=== PATIENT | male | born 1990 | race Caucasian/White ===

== ENCOUNTER 2019-04-29 00:33 | Emergency (ER) | payer OTHER ==
[2019-04-29] MEDS: SOD CHLORIDE 0.9% 1,000 ML IV (00:56)
[2019-04-29 01:01] LABS: ADD MAN DIFF? NO
[2019-04-29 01:04] LABS: WHITE BLOOD COUNT 10.3 10^3/ul (4.8-10.8)
[2019-04-29 01:04] LABS: BASOPHILS % 0.4 % (0.0-2.0); EOSINOPHILS # 0.1 10^3/ul (0.0-0.5); EOSINOPHILS % 1.3 % (0.0-7.0); HEMATOCRIT 45.7 % (42.0-52.0); HEMOGLOBIN 15.9 g/dl (14.0-18.0); LYMPHOCYTES # 2.4 10^3/ul (0.8-2.9); LYMPHOCYTES % 22.8 % (15.0-51.0); MEAN CORPUSCULAR HEMOGLOBIN 32.4 pg (29.0-33.0); MEAN CORPUSCULAR HGB CONC 34.8 g/dl (32.0-37.0); MEAN CORPUSCULAR VOLUME 93.1 fl (82.0-101.0); MEAN PLATELET VOLUME 9.3 fl (7.4-10.4); MONOCYTE # 0.7 10^3/ul (0.3-0.9); MONOCYTES % 6.7 % (0.0-11.0); NEUTROPHIL # 7.1 10^3/ul (1.6-7.5); NEUTROPHILS % 68.5 % (39.0-77.0); PLATELET COUNT 269 10^3/UL (140-415); RED BLOOD COUNT 4.91 10^6/ul (4.70-6.10); RED CELL DISTRIBUTION WIDTH 12.5 % (11.5-14.5)
[2019-04-29 01:24] LABS: INR 0.85; PARTIAL THROMBOPLASTIN TIME 26.4 Sec (23.0-35.0); PROTIME 11.7 Sec (11.9-14.9); PT RATIO 0.9
[2019-04-29 01:26] LABS: ANION GAP 11 (5-13); BLOOD UREA NITROGEN 8 mg/dl (7-20); CALCIUM 8.8 mg/dl (8.4-10.2); CARBON DIOXIDE 26 mmol/L (21-31); CHLORIDE 106 mmol/L (97-110); CREATININE 0.86 mg/dl (0.61-1.24); Estimated GFR > 60 mL/min (>60); GLUCOSE 122 mg/dl (70-220); POTASSIUM 4.4 mmol/L (3.5-5.1); SODIUM 143 mmol/L (135-144)
[2019-04-29] MEDS: SOD CHLORIDE 0.9% 100 ML (01:30)
[2019-04-29] MEDS: IOHEXOL 300MG/ML 150 ML BTL (01:30)
== END 2019-04-29 02:19 | disposition home or self-care (01) ==
LOC: E/R 00:33
DX: S00.83XA Contusion of other part of head, initial encounter (principal); F10.920 Alcohol use, unspecified with intoxication, uncomplicated; V49.10XA Passenger injured in collision with unspecified motor vehicles in nontraffic accident, initial encounter
CPT/HCPCS: 36415; 70450; 70486; 71260; 72125; 74177; 80048; 80307; 85025; 85610; 85730; 99285-25